=== PATIENT | male | born 1985 | race Two or more races ===

== ENCOUNTER 2020-11-15 11:07 | Inpatient (IN) | payer OTHER ==
[~2020-11-15] VITALS: Ht 170.2 cm; Wt 77.3 kg
[2020-11-15] MEDS ORDERED: ACETAMINOPHEN 500 MG TABLET PO ONE (12:45)
[2020-11-15] MEDS ORDERED: ACETAMINOPHEN 325 MG TABLET PO PRN (14:15)
[2020-11-15] MEDS ORDERED: OxyCODONE HCL/ACETAMINOPHEN 5-325 MG TABLET PO PRN (14:15)
[2020-11-15] MEDS ORDERED: MAGNESIUM HYDROXIDE SUSPENSION 30 ML UDCUP PO PRN (14:15)
[2020-11-15 15:30] VITALS: BP 131/69
[2020-11-15 20:10] VITALS: BP 129/77
[2020-11-16 05:15] VITALS: BP 113/71
[2020-11-16 07:51] VITALS: BP 108/65
[2020-11-16] MEDS ORDERED: FAMOTIDINE 20 MG TABLET PO SCH (09:00)
[2020-11-16] MEDS ORDERED: ACET-2247 PO (11:03)
[2020-11-16] MEDS ORDERED: MOM30 PO (11:04)
== END 2020-11-16 11:55 | DRG 563 ==
LOC: EMS 11:13 → 6S 14:17
PROVIDERS: ADMIT Internal Medicine; ATTEND Internal Medicine
PROC: 2W3TX1Z Immobilization of Left Foot using Splint (ICD-10-PCS; principal; 2020-11-15)
DX: S92.355A Nondisplaced fracture of fifth metatarsal bone, left foot, initial encounter for closed fracture (principal); W18.30XA Fall on same level, unspecified, initial encounter; W18.39XA Other fall on same level, initial encounter; Y93.67 Activity, basketball; Y92.89 Other specified places as the place of occurrence of the external cause; Y99.8 Other external cause status
CPT/HCPCS: 97161; 99285